=== PATIENT | male | born 1990 | race African-American/Black ===

== ENCOUNTER 2021-09-27 15:37 | Inpatient (IN) | payer MEDICAID ==
[~2021-09-27] VITALS: Ht 154.9 cm; Wt 103.5 kg
[~2021-09-27 15:37] MED LIST: ETOMIDATE 2MG/ML 10ML VIAL IV ONE; SODIUM CHLORIDE 0.9% 10ML VIAL ONE; VECURONIUM BROMIDE 10 MG/VIAL IV ONE
[2021-09-27] MEDS ORDERED: SODIUM CHLORIDE 0.9% 1,000 ML IV ONE ×2 (16:30)
[2021-09-27 17:10] LABS: BG BASE EXCESS -17.8 mmol/L (-2.0-2.0); BG CARBOXYHEMOGLOBIN 0.6 % (0.5-1.5); BG DEOXYHEMOGLOBIN 12.2 % (0.0-5.0); BG FRACTION INSPIRED OXYGEN 21; BG HCO3 ACT 11.2 mmol/L (22.0-26.0); BG METHEMOGLOBIN 0.3 % (0.0-1.5); BG OXYGEN SATURATION 87.7 % (92.0-98.5); BG OXYHEMOGLOBIN 86.9 % (94.0-97.0); BG PCO2 37.6 mmHg (35.0-45.0); BG PH 7.091 (7.350-7.450); BG PO2 64.7 mmHg (75.0-100.0); BG SAMPLE SITE RIGHT RADIAL; BG TOTAL HEMOGLOBIN 14.1 g/dL (12.0-18.0); BG VENT MODE ROOM AIR
[2021-09-27 17:14] LABS: HEMATOCRIT. 47.5 % (42.0-52.0); HEMOGLOBIN. 13.7 g/dL (14.0-18.0); MEAN CORPUSCULAR VOLUME 104.4 fL (80.0-94.0); MEAN PLATELET VOLUME 10.3 fl (7.4-10.4); PLATELET 241 x1000/uL (130-400); RED BLOOD CELL COUNT 4.55 mill/uL (4.7-6.1)
[2021-09-27 17:15] LABS: CHLORIDE 96 mEq/L (98-107)
[2021-09-27 17:20] LABS: ETHANOL BLOOD < 10 mg/dL
[2021-09-27 17:22] LABS: BETA HYDROXYBUTYRATE 8.3 mMol/L (0.0-0.3)
[2021-09-27] MEDS ORDERED: SODIUM BICARBONATE 8.4% 1 MEQ/ML 50ML SYR IV ONE (17:30)
[2021-09-27] MEDS ORDERED: SODIUM CHLORIDE 0.9% 1,000 ML IV SCH (17:30)
[2021-09-27] MEDS ORDERED: INSULIN REGULAR (DRIP) 100 UNITS in SODIUM CHLORIDE 0.9% 100 ML IV ONE (18:00)
[2021-09-27 18:14] LABS: PHOSPHORUS 8.1 mg/dL (2.5-4.9)
[2021-09-27] MEDS ORDERED: LORAZEPAM 2MG/ML CPJ ONE (18:14)
[2021-09-27] MEDS ORDERED: ONDANSETRON HCL 4MG/2ML INJ ONE (18:15)
[2021-09-27] MEDS ORDERED: ONDANSETRON HCL 4MG/2ML INJ IV SCH (18:15)
[2021-09-27] MEDS ORDERED: LORAZEPAM 2MG/ML CPJ IV SCH (18:15)
[2021-09-27 18:17] LABS: PLATELET ESTIMATE NORMAL
[2021-09-27] MEDS ORDERED: CALCIUM CHLORIDE 1GM/10ML SYR IV ONE (19:15)
[2021-09-27] MEDS ORDERED: PROPOFOL 10MG/ML 100ML 100 ML IV PRN (19:30)
[2021-09-27] MEDS ORDERED: NOREPINEPHRINE 8 MG in DEXT 5% WATER 242 ML IV PRN ×2 (22:30→22:45)
[2021-09-27] MEDS ORDERED: INSULIN REGULAR (DRIP) 100 UNITS in SODIUM CHLORIDE 0.9% 99 ML IV SCH (23:00)
[2021-09-28 00:36] LABS: HEPATITIS B SURFACE ANTIGEN NEGATIVE
[2021-09-28 08:41] LABS: BG BASE EXCESS -2.3 mmol/L (-2.0-2.0); BG CARBOXYHEMOGLOBIN 0.2 % (0.5-1.5); BG DEOXYHEMOGLOBIN 0.5 % (0.0-5.0); BG FRACTION INSPIRED OXYGEN 100; BG HCO3 ACT 21.7 mmol/L (22.0-26.0); BG METHEMOGLOBIN 0.3 % (0.0-1.5); BG OXYGEN SATURATION 99.5 % (92.0-98.5); BG PCO2 35.5 mmHg (35.0-45.0); BG PH 7.404 (7.350-7.450); BG PO2 381.1 mmHg (75.0-100.0); BG SAMPLE SITE RIGHT RADIAL; BG TOTAL HEMOGLOBIN 15.4 g/dL (12.0-18.0); BG TOTAL RESPIRATORY RATE 16 b/min; BG VENT MODE VENT - AC
[2021-09-28] MEDS ORDERED: DEXTROSE 50% WATER 50ML SYRINGE IV PRN (10:00)
[2021-09-28] MEDS ORDERED: ONDANSETRON HCL 4MG/2ML INJ IV PRN (10:00)
[2021-09-28] MEDS: PANTOPRAZOLE SODIUM 40 MG/VIAL IV SCH (10:58)
[2021-09-28] MEDS: PIPERACILLIN/TAZOBACTAM 3.375 G in DEXTROSE 5% WATER 50 ML IV SCH ×2 (11:52→21:51)
[2021-09-28] MEDS: INSULIN LISPRO 100 UNITS/ML SUBCUT SCH ×3 (12:09→21:00)
[2021-09-28] MEDS: BLOOD SUGAR DIAGNOSTIC STRIP TEST SCH ×3 (12:10→21:00)
[2021-09-28] MEDS: SODIUM CHLORIDE 0.45% 1,000 ML IV SCH ×2 (16:06→23:50)
[2021-09-28] MEDS ORDERED: IPRATROPIUM/ALBUTEROL 0.5-3(2.5)MG/3ML NEB HHN PRN (16:15)
[2021-09-28] MEDS ORDERED: INSULIN LISPRO 100 UNITS/ML SUBCUT NR ×2 (17:30→20:00)
[2021-09-28] MEDS ORDERED: INSULIN GLARGINE UD 100 UNITS/ML SYR SUBCUT NR ×2 (18:00→22:00)
[2021-09-28] MEDS ORDERED: NOREPINEPHRINE 8MG/250ML PMX 250 ML IV PRN (18:15)
[2021-09-28] MEDS: NOREPINEPHRINE 8 MG in DEXTROSE 5% WATER 250 ML IV PRN (18:34)
[2021-09-28] MEDS: PROPOFOL 10MG/ML 100ML 100 ML IV PRN ×2 (18:37→23:49)
[2021-09-28] MEDS: ACETAMINOPHEN 325MG TABLET PO PRN (20:03)
[2021-09-28 23:11] VITALS: BP 126/76
[2021-09-28 23:15] VITALS: BP 139/91
[2021-09-28 23:30] VITALS: BP 126/52
[2021-09-28 23:45] VITALS: BP 149/63
[2021-09-29] VITALS (101 sets, daily range): BP systolic 74–167; BP diastolic 20–112
[2021-09-29] MEDS: BLOOD SUGAR DIAGNOSTIC STRIP TEST SCH ×5 (00:20→20:44)
[2021-09-29] MEDS: INSULIN LISPRO 100 UNITS/ML SUBCUT SCH ×5 (00:33→20:44)
[2021-09-29] MEDS ORDERED: POTASSIUM CHLORIDE INJ 10 MEQ in SODIUM CHLORIDE 0.45% 1,000 ML IV SCH (02:00)
[2021-09-29] MEDS: PROPOFOL 10MG/ML 100ML 100 ML IV PRN ×5 (03:08→21:12)
[2021-09-29] MEDS: ACETAMINOPHEN 325MG TABLET PO PRN ×2 (03:30→16:55)
[2021-09-29 05:57] LABS: BASOPHILS % 0.6 % (0.0-2.0); EOSINOPHILS % 2.3 % (0.0-5.0); HEMATOCRIT. 38.7 % (42.0-52.0); HEMOGLOBIN. 12.9 g/dL (14.0-18.0); LYMPHOCYTES % 8.4 % (20.0-50.0); MEAN CORPUSCULAR HEMOGLOBIN 30.2 pg (28.0-32.0); MEAN CORPUSCULAR VOLUME 90.4 fL (80.0-94.0); MEAN PLATELET VOLUME 9.6 fl (7.4-10.4); MONOCYTES % 7.3 % (2.0-8.0); NEUTROPHILS % 81.4 % (40.0-76.0); PLATELET 109 x1000/uL (130-400); RED BLOOD CELL COUNT 4.28 mill/uL (4.7-6.1); RED CELL DISTRIBUTION WIDTH 14.2 % (11.6-14.6)
[2021-09-29 08:06] LABS: BG BASE EXCESS -4.9 mmol/L (-2.0-2.0); BG CARBOXYHEMOGLOBIN 0.3 % (0.5-1.5); BG DEOXYHEMOGLOBIN 1.6 % (0.0-5.0); BG HCO3 ACT 19.3 mmol/L (22.0-26.0); BG METHEMOGLOBIN 0.2 % (0.0-1.5); BG OXYGEN SATURATION 98.4 % (92.0-98.5); BG OXYHEMOGLOBIN 97.9 % (94.0-97.0); BG PCO2 33.3 mmHg (35.0-45.0); BG PH 7.381 (7.350-7.450); BG PO2 132.1 mmHg (75.0-100.0); BG SAMPLE SITE RIGHT BRACHIAL; BG TOTAL HEMOGLOBIN 13.5 g/dL (12.0-18.0); BG VENT MODE VENT - AC
[2021-09-29] MEDS: IPRATROPIUM/ALBUTEROL 0.5-3(2.5)MG/3ML NEB HHN SCH ×3 (08:10→19:53)
[2021-09-29] MEDS: PANTOPRAZOLE SODIUM 40 MG/VIAL IV SCH (08:27)
[2021-09-29] MEDS: SODIUM CHLORIDE 0.9% 1,000 ML IV SCH ×2 (08:28→20:46)
[2021-09-29] MEDS: MIDODRINE HCL 5MG TABLET PO SCH ×3 (08:32→22:53)
[2021-09-29] MEDS ORDERED: INSULIN GLARGINE UD 100 UNITS/ML SYR SUBCUT SCH (10:00)
[2021-09-29] MEDS: INSULIN GLARGINE UD 100 UNITS/ML SYR SUBCUT SCH ×2 (10:04→22:54)
[2021-09-29] MEDS: NOREPINEPHRINE 8 MG in DEXTROSE 5% WATER 250 ML IV PRN ×2 (10:44→15:07)
[2021-09-29] MEDS: PIPERACILLIN/TAZOBACTAM 3.375 G in DEXTROSE 5% WATER 50 ML IV SCH ×2 (11:01→20:44)
[2021-09-29] MEDS ORDERED: HEPARIN SODIUM 1,000 UNIT/1ML VIAL IV ONE (14:00)
[2021-09-29] MEDS: NOREPINEPHRINE 32 MG in DEXT 5% WATER 218 ML IV PRN (18:43)
[2021-09-30] VITALS (98 sets, daily range): BP systolic 79–174; BP diastolic 24–98
[2021-09-30] MEDS: IPRATROPIUM/ALBUTEROL 0.5-3(2.5)MG/3ML NEB HHN SCH ×4 (00:04→20:49)
[2021-09-30] MEDS: INSULIN LISPRO 100 UNITS/ML SUBCUT SCH ×7 (00:41→16:39)
[2021-09-30] MEDS: BLOOD SUGAR DIAGNOSTIC STRIP TEST SCH ×6 (00:42→23:48)
[2021-09-30] MEDS: PROPOFOL 10MG/ML 100ML 100 ML IV PRN ×4 (00:56→17:27)
[2021-09-30] MEDS: ACETAMINOPHEN 325MG TABLET PO PRN ×2 (01:00→10:20)
[2021-09-30] MEDS: MIDODRINE HCL 5MG TABLET PO SCH ×3 (05:51→22:02)
[2021-09-30 05:52] LABS: BASOPHILS % 0.8 % (0.0-2.0); EOSINOPHILS % 0.5 % (0.0-5.0); HEMATOCRIT. 35.8 % (42.0-52.0); HEMOGLOBIN. 11.8 g/dL (14.0-18.0); LYMPHOCYTES % 7.5 % (20.0-50.0); MEAN CORPUSCULAR HEMOGLOBIN 29.2 pg (28.0-32.0); MEAN CORPUSCULAR VOLUME 88.7 fL (80.0-94.0); MEAN PLATELET VOLUME 9.6 fl (7.4-10.4); MONOCYTES % 4.9 % (2.0-8.0); NEUTROPHILS % 86.3 % (40.0-76.0); PLATELET 88 x1000/uL (130-400); RED BLOOD CELL COUNT 4.03 mill/uL (4.7-6.1)
[2021-09-30 09:05] LABS: BG BASE EXCESS -6.4 mmol/L (-2.0-2.0); BG CARBOXYHEMOGLOBIN 0.3 % (0.5-1.5); BG DEOXYHEMOGLOBIN 2.7 % (0.0-5.0); BG FRACTION INSPIRED OXYGEN 45; BG HCO3 ACT 18.8 mmol/L (22.0-26.0); BG METHEMOGLOBIN 0.2 % (0.0-1.5); BG OXYGEN SATURATION 97.3 % (92.0-98.5); BG OXYHEMOGLOBIN 96.8 % (94.0-97.0); BG PCO2 36.1 mmHg (35.0-45.0); BG PH 7.334 (7.350-7.450); BG PO2 97.6 mmHg (75.0-100.0); BG SAMPLE SITE RIGHT RADIAL; BG TOTAL HEMOGLOBIN 12.1 g/dL (12.0-18.0); BG VENT MODE VENT - AC
[2021-09-30] MEDS: PIPERACILLIN/TAZOBACTAM 3.375 G in DEXTROSE 5% WATER 50 ML IV SCH ×2 (10:19→20:37)
[2021-09-30] MEDS: PANTOPRAZOLE SODIUM 40 MG/VIAL IV SCH (10:19)
[2021-09-30] MEDS: NOREPINEPHRINE 32 MG in DEXT 5% WATER 218 ML IV PRN (10:42)
[2021-09-30 13:09] LABS: INR 1.1; PROTHROMBIN TIME 11.9 sec (9.6-11.0)
[2021-09-30] MEDS: SODIUM CHLORIDE 0.9% 1,000 ML IV SCH (14:20)
[2021-09-30] MEDS ORDERED: INSULIN LISPRO 100 UNITS/ML SUBCUT SCH (19:30)
[2021-09-30] MEDS ORDERED: BLOOD SUGAR DIAGNOSTIC STRIP TEST SCH (22:00)
[2021-09-30] MEDS: INSULIN GLARGINE UD 100 UNITS/ML SYR SUBCUT SCH (22:04)
[2021-10-01] VITALS (103 sets, daily range): BP systolic 68–156; BP diastolic 18–99
[2021-10-01] MEDS: INSULIN LISPRO 100 UNITS/ML SUBCUT SCH ×7 (00:10→18:27)
[2021-10-01] MEDS: ACETAMINOPHEN 325MG TABLET PO PRN ×2 (03:18→09:15)
[2021-10-01] MEDS: PROPOFOL 10MG/ML 100ML 100 ML IV PRN ×4 (03:42→21:06)
[2021-10-01] MEDS: IPRATROPIUM/ALBUTEROL 0.5-3(2.5)MG/3ML NEB HHN SCH ×4 (04:31→20:36)
[2021-10-01 05:43] LABS: HEMATOCRIT. 32.8 % (42.0-52.0); HEMOGLOBIN. 10.8 g/dL (14.0-18.0); MEAN CORPUSCULAR HEMOGLOBIN 29.1 pg (28.0-32.0); MEAN CORPUSCULAR VOLUME 88.3 fL (80.0-94.0); MEAN PLATELET VOLUME 10.3 fl (7.4-10.4); PLATELET 105 x1000/uL (130-400); RED BLOOD CELL COUNT 3.71 mill/uL (4.7-6.1)
[2021-10-01] MEDS: BLOOD SUGAR DIAGNOSTIC STRIP TEST SCH ×4 (06:00→23:26)
[2021-10-01] MEDS: MIDODRINE HCL 5MG TABLET PO SCH ×3 (06:03→21:29)
[2021-10-01] MEDS: SODIUM CHLORIDE 0.9% 1,000 ML IV SCH ×2 (06:28→23:46)
[2021-10-01] MEDS: NOREPINEPHRINE 32 MG in DEXT 5% WATER 218 ML IV PRN (08:37)
[2021-10-01] MEDS: PANTOPRAZOLE SODIUM 40 MG/VIAL IV SCH (08:37)
[2021-10-01] MEDS: PIPERACILLIN/TAZOBACTAM 3.375 G in DEXTROSE 5% WATER 50 ML IV SCH ×2 (08:38→21:27)
[2021-10-01] MEDS: INSULIN GLARGINE UD 100 UNITS/ML SYR SUBCUT SCH ×2 (09:16→21:28)
[2021-10-01 13:04] LABS: PLATELET ESTIMATE SLIGHTLY DECREASED
[2021-10-01 17:13] LABS: BG BASE EXCESS -2.8 mmol/L (-2.0-2.0); BG CARBOXYHEMOGLOBIN 0.1 % (0.5-1.5); BG DEOXYHEMOGLOBIN 3.4 % (0.0-5.0); BG HCO3 ACT 22.5 mmol/L (22.0-26.0); BG METHEMOGLOBIN 0.7 % (0.0-1.5); BG OXYGEN SATURATION 96.6 % (92.0-98.5); BG OXYHEMOGLOBIN 95.8 % (94.0-97.0); BG PCO2 41.2 mmHg (35.0-45.0); BG PH 7.355 (7.350-7.450); BG PO2 97.1 mmHg (75.0-100.0); BG SAMPLE SITE RIGHT RADIAL; BG VENT MODE VENT - AC
[2021-10-01] MEDS ORDERED: VANCOMYCIN 1500MG in DEXTROSE 5% WATER 250ML IV NR (21:00)
[2021-10-02] VITALS (105 sets, daily range): BP systolic 50–160; BP diastolic 16–107
[2021-10-02] MEDS: INSULIN LISPRO 100 UNITS/ML SUBCUT SCH ×7 (00:05→17:47)
[2021-10-02] MEDS: IPRATROPIUM/ALBUTEROL 0.5-3(2.5)MG/3ML NEB HHN SCH ×4 (00:56→19:57)
[2021-10-02] MEDS: PROPOFOL 10MG/ML 100ML 100 ML IV PRN ×3 (04:09→21:19)
[2021-10-02] MEDS: BLOOD SUGAR DIAGNOSTIC STRIP TEST SCH ×4 (05:54→23:58)
[2021-10-02] MEDS: MIDODRINE HCL 5MG TABLET PO SCH ×3 (06:00→16:05)
[2021-10-02] MEDS: PIPERACILLIN/TAZOBACTAM 3.375 G in DEXTROSE 5% WATER 50 ML IV SCH (08:12)
[2021-10-02] MEDS: PANTOPRAZOLE SODIUM 40 MG/VIAL IV SCH (08:12)
[2021-10-02 08:20] LABS: BG BASE EXCESS -5.8 mmol/L (-2.0-2.0); BG CARBOXYHEMOGLOBIN 0.3 % (0.5-1.5); BG DEOXYHEMOGLOBIN 3.2 % (0.0-5.0); BG HCO3 ACT 19.8 mmol/L (22.0-26.0); BG METHEMOGLOBIN 0.2 % (0.0-1.5); BG OXYGEN SATURATION 96.8 % (92.0-98.5); BG OXYHEMOGLOBIN 96.3 % (94.0-97.0); BG PCO2 38.9 mmHg (35.0-45.0); BG PH 7.324 (7.350-7.450); BG PO2 97.5 mmHg (75.0-100.0); BG SAMPLE SITE RIGHT RADIAL; BG TOTAL HEMOGLOBIN 10.9 g/dL (12.0-18.0); BG VENT MODE VENT - AC
[2021-10-02 08:21] LABS: HEMATOCRIT. 31.8 % (42.0-52.0); HEMOGLOBIN. 10.2 g/dL (14.0-18.0); MEAN CORPUSCULAR HEMOGLOBIN 28.8 pg (28.0-32.0); MEAN PLATELET VOLUME 10.4 fl (7.4-10.4); PLATELET 118 x1000/uL (130-400); RED BLOOD CELL COUNT 3.54 mill/uL (4.7-6.1); RED CELL DISTRIBUTION WIDTH 14.9 % (11.6-14.6)
[2021-10-02 10:07] LABS: PLATELET ESTIMATE DECREASED
[2021-10-02] MEDS: INSULIN GLARGINE UD 100 UNITS/ML SYR SUBCUT SCH ×2 (11:28→21:44)
[2021-10-02] MEDS: ACETAMINOPHEN 325MG TABLET PO PRN (12:20)
[2021-10-02] MEDS: SODIUM CHLORIDE 0.9% 1,000 ML IV SCH (14:53)
[2021-10-02] MEDS: CEFEPIME 1,000 MG in DEXTROSE 5% WATER 50 ML IV SCH (20:28)
[2021-10-02] MEDS: NOREPINEPHRINE 32 MG in DEXT 5% WATER 218 ML IV PRN (21:41)
[2021-10-02] MEDS ORDERED: PROPOFOL 10MG/ML 100ML 100 ML IV PRN (22:00)
[2021-10-03] VITALS (99 sets, daily range): BP systolic 96–170; BP diastolic 23–104
[2021-10-03] MEDS: IPRATROPIUM/ALBUTEROL 0.5-3(2.5)MG/3ML NEB HHN SCH ×4 (00:13→21:00)
[2021-10-03 05:39] LABS: HEMATOCRIT. 28.9 % (42.0-52.0); HEMOGLOBIN. 9.5 g/dL (14.0-18.0); MEAN CORPUSCULAR HEMOGLOBIN 29.6 pg (28.0-32.0); RED BLOOD CELL COUNT 3.21 mill/uL (4.7-6.1); RED CELL DISTRIBUTION WIDTH 14.8 % (11.6-14.6)
[2021-10-03] MEDS: BLOOD SUGAR DIAGNOSTIC STRIP TEST SCH ×4 (06:03→23:59)
[2021-10-03] MEDS: INSULIN LISPRO 100 UNITS/ML SUBCUT SCH ×7 (06:03→17:17)
[2021-10-03] MEDS: ACETAMINOPHEN 325MG TABLET PO PRN (09:01)
[2021-10-03] MEDS: PANTOPRAZOLE SODIUM 40 MG/VIAL IV SCH (09:01)
[2021-10-03] MEDS: MIDODRINE HCL 5MG TABLET PO SCH ×3 (09:02→17:16)
[2021-10-03] MEDS: SODIUM CHLORIDE 0.9% 1,000 ML IV SCH (09:05)
[2021-10-03] MEDS: INSULIN GLARGINE UD 100 UNITS/ML SYR SUBCUT SCH ×2 (09:06→21:37)
[2021-10-03 09:19] LABS: BG BASE EXCESS -4.8 mmol/L (-2.0-2.0); BG CARBOXYHEMOGLOBIN 0.2 % (0.5-1.5); BG DEOXYHEMOGLOBIN 1.9 % (0.0-5.0); BG FRACTION INSPIRED OXYGEN 40; BG HCO3 ACT 20.8 mmol/L (22.0-26.0); BG METHEMOGLOBIN 0.3 % (0.0-1.5); BG OXYGEN SATURATION 98.1 % (92.0-98.5); BG OXYHEMOGLOBIN 97.6 % (94.0-97.0); BG PH 7.324 (7.350-7.450); BG PO2 129.1 mmHg (75.0-100.0); BG SAMPLE SITE RIGHT RADIAL; BG TOTAL HEMOGLOBIN 9.9 g/dL (12.0-18.0); BG VENT MODE VENT - AC
[2021-10-03 11:06] LABS: NUCLEATED RED BLOOD CELLS 1 /100 WBC; PLATELET ESTIMATE NORMAL
[2021-10-03 11:07] LABS: MEAN PLATELET VOLUME 10.5 fl (7.4-10.4); PLATELET 168 x1000/uL (130-400)
[2021-10-03] MEDS ORDERED: PNEUMOCOCCAL 23-VAL P-SAC VAC 0.5 ML IM ONE (16:45)
[2021-10-03] MEDS ORDERED: INFLUENZA VACCINE 05/PF 0.5 ML SYRINGE IM ONE (16:45)
[2021-10-03] MEDS: CEFEPIME 1,000 MG in DEXTROSE 5% WATER 50 ML IV SCH (20:22)
[2021-10-04] VITALS (87 sets, daily range): BP systolic 50–169; BP diastolic 20–117
[2021-10-04] MEDS: INSULIN LISPRO 100 UNITS/ML SUBCUT SCH ×6 (00:01→17:13)
[2021-10-04] MEDS: IPRATROPIUM/ALBUTEROL 0.5-3(2.5)MG/3ML NEB HHN SCH ×4 (01:22→20:29)
[2021-10-04] MEDS: SODIUM CHLORIDE 0.9% 1,000 ML IV SCH ×2 (05:00→18:39)
[2021-10-04 05:38] LABS: HEMATOCRIT. 28.6 % (42.0-52.0); HEMOGLOBIN. 9.2 g/dL (14.0-18.0); MEAN CORPUSCULAR VOLUME 89.7 fL (80.0-94.0); MEAN PLATELET VOLUME 10.1 fl (7.4-10.4); PLATELET 162 x1000/uL (130-400); RED BLOOD CELL COUNT 3.19 mill/uL (4.7-6.1); RED CELL DISTRIBUTION WIDTH 14.8 % (11.6-14.6)
[2021-10-04] MEDS: BLOOD SUGAR DIAGNOSTIC STRIP TEST SCH ×3 (06:15→17:13)
[2021-10-04] MEDS ORDERED: VECURONIUM BROMIDE 10 MG/VIAL IV ONE (08:05)
[2021-10-04] MEDS ORDERED: SODIUM CHLORIDE 0.9% 10ML VIAL ONE (08:05)
[2021-10-04] MEDS ORDERED: ETOMIDATE 2MG/ML 10ML VIAL IV ONE (08:05)
[2021-10-04 08:48] LABS: BG BASE EXCESS -7.5 mmol/L (-2.0-2.0); BG CARBOXYHEMOGLOBIN 0.3 % (0.5-1.5); BG DEOXYHEMOGLOBIN 2.6 % (0.0-5.0); BG HCO3 ACT 18.6 mmol/L (22.0-26.0); BG METHEMOGLOBIN 0.1 % (0.0-1.5); BG OXYGEN SATURATION 97.4 % (92.0-98.5); BG PH 7.285 (7.350-7.450); BG PO2 106.1 mmHg (75.0-100.0); BG SAMPLE SITE RIGHT RADIAL; BG TOTAL HEMOGLOBIN 9.4 g/dL (12.0-18.0); BG VENT MODE VENT - SIMV
[2021-10-04] MEDS: MIDODRINE HCL 5MG TABLET PO SCH ×3 (09:14→16:15)
[2021-10-04] MEDS: PANTOPRAZOLE SODIUM 40 MG/VIAL IV SCH (09:14)
[2021-10-04] MEDS: INSULIN GLARGINE UD 100 UNITS/ML SYR SUBCUT SCH ×2 (09:15→22:00)
[2021-10-04 10:23] LABS: BG BASE EXCESS -6.5 mmol/L (-2.0-2.0); BG CARBOXYHEMOGLOBIN 0.3 % (0.5-1.5); BG DEOXYHEMOGLOBIN 2.9 % (0.0-5.0); BG HCO3 ACT 19.6 mmol/L (22.0-26.0); BG METHEMOGLOBIN 0.2 % (0.0-1.5); BG OXYGEN SATURATION 97.1 % (92.0-98.5); BG OXYHEMOGLOBIN 96.6 % (94.0-97.0); BG PCO2 41.5 mmHg (35.0-45.0); BG PH 7.293 (7.350-7.450); BG PO2 99.9 mmHg (75.0-100.0); BG SAMPLE SITE RIGHT RADIAL; BG TOTAL HEMOGLOBIN 10.8 g/dL (12.0-18.0); BG VENT MODE VENT - CPAP
[2021-10-04 12:23] LABS: PLATELET ESTIMATE NORMAL
[2021-10-04] MEDS ORDERED: RACEPINEPHRINE 2.25% 0.5ML NEB VIAL HHN NR (12:45)
[2021-10-04 13:24] LABS: BG BASE EXCESS -8.6 mmol/L (-2.0-2.0); BG CARBOXYHEMOGLOBIN 0.3 % (0.5-1.5); BG DEOXYHEMOGLOBIN 7.5 % (0.0-5.0); BG FRACTION INSPIRED OXYGEN 70; BG HCO3 ACT 19.5 mmol/L (22.0-26.0); BG METHEMOGLOBIN 0.2 % (0.0-1.5); BG OXYGEN SATURATION 92.5 % (92.0-98.5); BG PCO2 52.4 mmHg (35.0-45.0); BG PH 7.189 (7.350-7.450); BG PO2 75.4 mmHg (75.0-100.0); BG SAMPLE SITE LEFT RADIAL; BG TOTAL HEMOGLOBIN 10.2 g/dL (12.0-18.0); BG VENT MODE VENT - AC
[2021-10-04] MEDS: PROPOFOL 10MG/ML 100ML 100 ML IV PRN ×2 (15:54→19:04)
[2021-10-04] MEDS: FENTANYL CITRATE/PF 2,500 MCG in SODIUM CHLORIDE 0.9% 200 ML IV PRN (17:22)
[2021-10-04] MEDS: CEFEPIME 1,000 MG in DEXTROSE 5% WATER 50 ML IV SCH (21:04)
[2021-10-04] MEDS: NOREPINEPHRINE 32 MG in DEXT 5% WATER 218 ML IV PRN (21:04)
[2021-10-05] VITALS (98 sets, daily range): BP systolic 75–195; BP diastolic 30–133
[2021-10-05] MEDS: IPRATROPIUM/ALBUTEROL 0.5-3(2.5)MG/3ML NEB HHN SCH ×4 (00:22→20:35)
[2021-10-05] MEDS: PROPOFOL 10MG/ML 100ML 100 ML IV PRN (02:32)
[2021-10-05 05:26] LABS: HEMATOCRIT. 28.1 % (42.0-52.0); HEMOGLOBIN. 9.1 g/dL (14.0-18.0); MEAN CORPUSCULAR HEMOGLOBIN 28.8 pg (28.0-32.0); MEAN CORPUSCULAR VOLUME 88.9 fL (80.0-94.0); MEAN PLATELET VOLUME 9.6 fl (7.4-10.4); PLATELET 200 x1000/uL (130-400); RED BLOOD CELL COUNT 3.17 mill/uL (4.7-6.1); RED CELL DISTRIBUTION WIDTH 15.2 % (11.6-14.6)
[2021-10-05] MEDS: BLOOD SUGAR DIAGNOSTIC STRIP TEST SCH ×5 (06:00→23:54)
[2021-10-05] MEDS: INSULIN LISPRO 100 UNITS/ML SUBCUT SCH ×5 (06:00→23:54)
[2021-10-05] MEDS: PANTOPRAZOLE SODIUM 40 MG/VIAL IV SCH (08:06)
[2021-10-05] MEDS: MIDODRINE HCL 5MG TABLET PO SCH ×3 (08:06→16:08)
[2021-10-05] MEDS: ACETAMINOPHEN 325MG TABLET PO PRN (08:06)
[2021-10-05] MEDS: NOREPINEPHRINE 32 MG in DEXT 5% WATER 218 ML IV PRN (09:03)
[2021-10-05 09:11] LABS: PLATELET ESTIMATE NORMAL
[2021-10-05] MEDS: INSULIN GLARGINE UD 100 UNITS/ML SYR SUBCUT SCH ×2 (09:51→22:00)
[2021-10-05 10:32] LABS: BG BASE EXCESS -7.2 mmol/L (-2.0-2.0); BG CARBOXYHEMOGLOBIN 0.2 % (0.5-1.5); BG DEOXYHEMOGLOBIN 10.5 % (0.0-5.0); BG FRACTION INSPIRED OXYGEN 100; BG HCO3 ACT 20.3 mmol/L (22.0-26.0); BG METHEMOGLOBIN 0.1 % (0.0-1.5); BG OXYGEN SATURATION 89.5 % (92.0-98.5); BG OXYHEMOGLOBIN 89.2 % (94.0-97.0); BG PCO2 50.6 mmHg (35.0-45.0); BG PH 7.221 (7.350-7.450); BG PO2 62.9 mmHg (75.0-100.0); BG SAMPLE SITE RH; BG TOTAL HEMOGLOBIN 9.5 g/dL (12.0-18.0); BG VENT MODE VENT - AC
[2021-10-05] MEDS: MEROPENEM 1,000 MG in SODIUM CHLORIDE 0.9% 100 ML IV SCH (13:50)
[2021-10-05] MEDS: FENTANYL CITRATE/PF 2,500 MCG in SODIUM CHLORIDE 0.9% 200 ML IV PRN (20:18)
[2021-10-06] VITALS (78 sets, daily range): BP systolic 61–135; BP diastolic 28–79
[2021-10-06] MEDS: IPRATROPIUM/ALBUTEROL 0.5-3(2.5)MG/3ML NEB HHN SCH ×4 (00:44→20:53)
[2021-10-06 05:36] LABS: HEMATOCRIT. 26.4 % (42.0-52.0); HEMOGLOBIN. 8.3 g/dL (14.0-18.0); MEAN CORPUSCULAR VOLUME 92.5 fL (80.0-94.0); MEAN PLATELET VOLUME 10.3 fl (7.4-10.4); PLATELET 194 x1000/uL (130-400); RED BLOOD CELL COUNT 2.85 mill/uL (4.7-6.1); RED CELL DISTRIBUTION WIDTH 16.1 % (11.6-14.6)
[2021-10-06] MEDS: INSULIN LISPRO 100 UNITS/ML SUBCUT SCH ×3 (06:00→18:17)
[2021-10-06] MEDS: BLOOD SUGAR DIAGNOSTIC STRIP TEST SCH ×3 (06:09→18:13)
[2021-10-06] MEDS ORDERED: SODIUM BICARBONATE 8.4% 1 MEQ/ML 50ML SYR IV ONE (08:34)
[2021-10-06] MEDS ORDERED: CALCIUM CHLORIDE 1GM/10ML SYR IV ONE (08:34)
[2021-10-06] MEDS ORDERED: EPINEPHRINE 0.1MG/ML (1:10,000) 10ML SYR ONE (08:34)
[2021-10-06] MEDS: PANTOPRAZOLE SODIUM 40 MG/VIAL IV SCH (09:00)
[2021-10-06] MEDS: MIDODRINE HCL 5MG TABLET PO SCH ×3 (09:00→17:40)
[2021-10-06 09:53] LABS: BG BASE EXCESS -17.1 mmol/L (-2.0-2.0); BG CARBOXYHEMOGLOBIN 0.3 % (0.5-1.5); BG FRACTION INSPIRED OXYGEN 100; BG HCO3 ACT 12.1 mmol/L (22.0-26.0); BG METHEMOGLOBIN 0.3 % (0.0-1.5); BG OXYHEMOGLOBIN 97.4 % (94.0-97.0); BG PCO2 42.7 mmHg (35.0-45.0); BG PO2 139.1 mmHg (75.0-100.0); BG SAMPLE SITE RIGHT RADIAL; BG TOTAL HEMOGLOBIN 9.2 g/dL (12.0-18.0); BG VENT MODE VENT - AC
[2021-10-06 10:00] LABS: ATYPICAL LYMPHOCYTES 1; NUCLEATED RED BLOOD CELLS 1 /100 WBC; PLATELET ESTIMATE NORMAL
[2021-10-06] MEDS ORDERED: SODIUM BICARBONATE 8.4% 1 MEQ/ML 50ML SYR IV NR (10:15)
[2021-10-06] MEDS: INSULIN GLARGINE UD 100 UNITS/ML SYR SUBCUT SCH ×2 (10:53→21:33)
[2021-10-06] MEDS: MEROPENEM 1,000 MG in SODIUM CHLORIDE 0.9% 100 ML IV SCH (13:00)
[2021-10-06] MEDS: NOREPINEPHRINE 32 MG in DEXT 5% WATER 218 ML IV PRN ×2 (15:21→20:32)
[2021-10-06] MEDS ORDERED: DILTIAZEM HCL 5MG/ML 5ML VIAL IV NR (16:30)
[2021-10-06] MEDS ORDERED: DIGOXIN 500MCG/2ML AMP IV ONE (16:30)
[2021-10-06] MEDS ORDERED: DIGOXIN 500MCG/2ML AMP ONE (16:41)
[2021-10-06] MEDS ORDERED: PROPOFOL 10MG/ML 100ML 100 ML IV SCH (17:00)
[2021-10-06] MEDS ORDERED: INSULIN REGULAR (HUMULIN R) 300UNITS/3ML VIAL IV NR (17:15)
[2021-10-06] MEDS ORDERED: DEXTROSE 50% WATER 50ML SYRINGE IV ONE (17:15)
[2021-10-06] MEDS ORDERED: PROPOFOL 10MG/ML 100ML 100 ML IV PRN (17:30)
[2021-10-06] MEDS ORDERED: CALCIUM GLUCONATE 1GM PREMIX 50 ML IV ONE (18:30)
[2021-10-06] MEDS ORDERED: CALCIUM GLUCONATE 1,000 MG in DEXT 5% WATER 90 ML IV ONE (18:30)
[2021-10-06 23:04] LABS: HEMATOCRIT. 26.1 % (42.0-52.0); HEMOGLOBIN. 8.2 g/dL (14.0-18.0); MEAN CORPUSCULAR VOLUME 92.6 fL (80.0-94.0); MEAN PLATELET VOLUME 10.3 fl (7.4-10.4); PLATELET 215 x1000/uL (130-400); RED BLOOD CELL COUNT 2.81 mill/uL (4.7-6.1); RED CELL DISTRIBUTION WIDTH 16.1 % (11.6-14.6)
[2021-10-06 23:49] LABS: PLATELET ESTIMATE NORMAL
[2021-10-07] VITALS (98 sets, daily range): BP systolic 69–148; BP diastolic 27–96
[2021-10-07] MEDS: BLOOD SUGAR DIAGNOSTIC STRIP TEST SCH ×5 (00:03→23:42)
[2021-10-07] MEDS: INSULIN LISPRO 100 UNITS/ML SUBCUT SCH ×5 (00:13→23:46)
[2021-10-07] MEDS: IPRATROPIUM/ALBUTEROL 0.5-3(2.5)MG/3ML NEB HHN SCH ×4 (01:58→21:21)
[2021-10-07] MEDS ORDERED: LACTULOSE 20G/30ML UDC PO SCH ×6 (03:00→05:00)
[2021-10-07] MEDS ORDERED: SODIUM POLYSTYRENE SULFONATE 15 G/60 ML BOT PO SCH ×7 (03:00→07:00)
[2021-10-07] MEDS: ACETAMINOPHEN 325MG TABLET PO PRN (03:39)
[2021-10-07] MEDS: NOREPINEPHRINE 32 MG in DEXT 5% WATER 218 ML IV PRN ×2 (05:58→18:41)
[2021-10-07] MEDS: MIDODRINE HCL 5MG TABLET PO SCH ×3 (09:00→17:03)
[2021-10-07] MEDS: PANTOPRAZOLE SODIUM 40 MG/VIAL IV SCH (09:41)
[2021-10-07] MEDS: INSULIN GLARGINE UD 100 UNITS/ML SYR SUBCUT SCH (09:46)
[2021-10-07 10:21] LABS: BG BASE EXCESS -4.7 mmol/L (-2.0-2.0); BG CARBOXYHEMOGLOBIN 0.2 % (0.5-1.5); BG DEOXYHEMOGLOBIN 12.2 % (0.0-5.0); BG FRACTION INSPIRED OXYGEN 100; BG METHEMOGLOBIN 0.6 % (0.0-1.5); BG OXYGEN SATURATION 87.7 % (92.0-98.5); BG PH 7.271 (7.350-7.450); BG PO2 64.5 mmHg (75.0-100.0); BG SAMPLE SITE RIGHT RADIAL; BG TOTAL RESPIRATORY RATE 30 b/min; BG VENT MODE VENT - AC
[2021-10-07] MEDS: MEROPENEM 1,000 MG in SODIUM CHLORIDE 0.9% 100 ML IV SCH (12:39)
[2021-10-07] MEDS: FENTANYL CITRATE/PF 2,500 MCG in SODIUM CHLORIDE 0.9% 200 ML IV PRN (14:19)
[2021-10-07 16:18] LABS: HEMATOCRIT. 23.2 % (42.0-52.0); HEMOGLOBIN. 7.5 g/dL (14.0-18.0); MEAN CORPUSCULAR HEMOGLOBIN 28.4 pg (28.0-32.0); MEAN CORPUSCULAR VOLUME 88.5 fL (80.0-94.0); MEAN PLATELET VOLUME 9.6 fl (7.4-10.4); PLATELET 189 x1000/uL (130-400); RED BLOOD CELL COUNT 2.62 mill/uL (4.7-6.1); RED CELL DISTRIBUTION WIDTH 15.4 % (11.6-14.6)
[2021-10-07] MEDS ORDERED: PANTOPRAZOLE SODIUM 40 MG/VIAL IV SCH (17:00)
[2021-10-07 18:34] LABS: PLATELET ESTIMATE NORMAL
[2021-10-07] MEDS ORDERED: VANCOMYCIN 1 G PREMIX 200 ML IV NR (20:00)
[2021-10-07] MEDS ORDERED: EPOETIN ALFA-EPBX 4,000 UNIT/ML VIAL SUBCUT NR (21:00)
[2021-10-07] MEDS ORDERED: INSULIN GLARGINE UD 100 UNITS/ML SYR SUBCUT SCH (22:00)
[2021-10-08] VITALS (30 sets, daily range): BP systolic 79–122; BP diastolic 34–60
[2021-10-08] MEDS: IPRATROPIUM/ALBUTEROL 0.5-3(2.5)MG/3ML NEB HHN SCH ×2 (00:20→07:50)
[2021-10-08 05:09] LABS: HEMATOCRIT. 25.7 % (42.0-52.0); HEMOGLOBIN. 8.2 g/dL (14.0-18.0); MEAN CORPUSCULAR HEMOGLOBIN 28.4 pg (28.0-32.0); MEAN PLATELET VOLUME 10.1 fl (7.4-10.4); PLATELET 201 x1000/uL (130-400); RED BLOOD CELL COUNT 2.89 mill/uL (4.7-6.1); RED CELL DISTRIBUTION WIDTH 15.4 % (11.6-14.6)
[2021-10-08] MEDS: BLOOD SUGAR DIAGNOSTIC STRIP TEST SCH (05:46)
[2021-10-08] MEDS: INSULIN LISPRO 100 UNITS/ML SUBCUT SCH (06:26)
[2021-10-08] MEDS ORDERED: PROPOFOL 10MG/ML 100ML 100 ML IV PRN (06:30)
[2021-10-08] MEDS: FENTANYL CITRATE/PF 2,500 MCG in SODIUM CHLORIDE 0.9% 200 ML IV PRN ×2 (06:40→06:43)
[2021-10-08] MEDS: NOREPINEPHRINE 32 MG in DEXT 5% WATER 218 ML IV PRN (06:47)
[2021-10-08] MEDS ORDERED: PHENYLEPHRINE 100 MG in DEXT 5% WATER 240 ML IV PRN (08:00)
[2021-10-08] MEDS ORDERED: CALCIUM CHLORIDE 1GM/10ML SYR IV ONE (08:34)
[2021-10-08] MEDS ORDERED: SODIUM BICARBONATE 8.4% 1 MEQ/ML 50ML SYR IV ONE (08:34)
[2021-10-08] MEDS ORDERED: DEXTROSE 50% WATER 50ML SYRINGE IV ONE (08:34)
[2021-10-08] MEDS ORDERED: EPINEPHRINE 0.1MG/ML (1:10,000) 10ML SYR ONE (08:34)
[2021-10-08] MEDS ORDERED: EPOETIN ALFA-EPBX 4,000 UNIT/ML VIAL SUBCUT PRN (09:00)
[2021-10-08 15:15] LABS: PLATELET ESTIMATE NORMAL
== END 2021-10-08 12:00 | DRG 720 ==
LOC: ER 15:37 → MICUSO 22:27 → EDBEDREQTM 22:36 → EDBEDREQ 22:36 → MICUSO 09-28 22:13
PROVIDERS: ADMIT Internal Medicine; ATTEND Internal Medicine
PROC: 5A1955Z Respiratory Ventilation, Greater than 96 Consecutive Hours (ICD-10-PCS; principal; 2021-09-27)
PROC: 02HV33Z Insertion of Infusion Device into Superior Vena Cava, Percutaneous Approach (ICD-10-PCS; 2021-09-27)
PROC: B548ZZA Ultrasonography of Superior Vena Cava, Guidance (ICD-10-PCS; 2021-09-27)
PROC: 5A1D70Z Performance of Urinary Filtration, Intermittent, Less than 6 Hours Per Day (ICD-10-PCS; 2021-09-27)
PROC: 0BH17EZ Insertion of Endotracheal Airway into Trachea, Via Natural or Artificial Opening (ICD-10-PCS; 2021-09-27)
PROC: 02HV33Z Insertion of Infusion Device into Superior Vena Cava, Percutaneous Approach (ICD-10-PCS; 2021-09-27)
PROC: B548ZZA Ultrasonography of Superior Vena Cava, Guidance (ICD-10-PCS; 2021-09-27)
PROC: 02HV33Z Insertion of Infusion Device into Superior Vena Cava, Percutaneous Approach (ICD-10-PCS; 2021-09-30)
PROC: 0BH17EZ Insertion of Endotracheal Airway into Trachea, Via Natural or Artificial Opening (ICD-10-PCS; 2021-10-04)
PROC: 5A1945Z Respiratory Ventilation, 24-96 Consecutive Hours (ICD-10-PCS; 2021-10-04)
PROC: 5A12012 Performance of Cardiac Output, Single, Manual (ICD-10-PCS; 2021-10-06)
PROC: 5A1D70Z Performance of Urinary Filtration, Intermittent, Less than 6 Hours Per Day (ICD-10-PCS; 2021-10-07)
PROC: 5A1D70Z Performance of Urinary Filtration, Intermittent, Less than 6 Hours Per Day (ICD-10-PCS; 2021-10-08)
DX: A41.9 Sepsis, unspecified organism (principal); J96.01 Acute respiratory failure with hypoxia; N17.0 Acute kidney failure with tubular necrosis; J69.0 Pneumonitis due to inhalation of food and vomit; G93.41 Metabolic encephalopathy; R57.1 Hypovolemic shock; R65.21 Severe sepsis with septic shock; E11.10 Type 2 diabetes mellitus with ketoacidosis without coma; E44.0 Moderate protein-calorie malnutrition; E87.1 Hypo-osmolality and hyponatremia; E87.8 Other disorders of electrolyte and fluid balance, not elsewhere classified; E78.5 Hyperlipidemia, unspecified; E87.5 Hyperkalemia; I51.7 Cardiomegaly; M10.9 Gout, unspecified; Z20.822 Contact with and (suspected) exposure to COVID-19; R79.89 Other specified abnormal findings of blood chemistry; D64.9 Anemia, unspecified; I46.9 Cardiac arrest, cause unspecified; E78.00 Pure hypercholesterolemia, unspecified; E87.0 Hyperosmolality and hypernatremia; Q90.9 Down syndrome, unspecified; Z68.41 Body mass index [BMI] 40.0-44.9, adult; Z99.2 Dependence on renal dialysis
CPT/HCPCS: 36415; 36600; 71045; 76770; 76937; 80048; 80053; 80202; 80320; 82010; 82140; 82270; 82375; 82805; 82962; 83036; 83605; 83735; 84100; 84132; 84145; 84478; 84484; 85025; 85044; 86705; 86709; 86803; 87070; 87106; 87340; 87426; 93005; 93306; 93970; 94002; 99291; C1752; C9113; J0610; J0692; J0885; J1160; J1644; J1815; J2060; J2185; J2405; J2543; J2704; J3010; J3370; J3480; J3490; J7030; J7040; J7050; J7060; G0480